=== PATIENT | male | born 1975 | race Caucasian/White ===

== ENCOUNTER → 2016-08-11 | Outpatient (CLI) | payer OTHER ==
[~2016-08-11] MED LIST: DARVOCET-N 1001 EACH PO; FLEXERIL10 MG PO; HYDROCODONE BIT1 T39 PO; IBUPROFEN600 MG PO; LORTAB 5/500 501 TAB PO; MEDROL 4MG. DOSE4 MG PO; NAPROSYN 500MG500 MG PO; NOMEDS *; NORCO 325 MG-51 TAB PO; PHENERGAN25 M3 PO; PRILOSEC OTC20 MG PO; VICODIN 5/500 T1 TAB PO; VICODIN 7.5/501 EACH OR
--- NOTE | 2016-08-11 12:49 | RADIOLOGY REPORT PS360 ---
WRIST-3 VIEWS-LT HISTORY: LT WRIST PAIN COMPARISON: None FINDINGS: No fracture or dislocation. No lytic or blastic change. There is normal mineralization. The joint spaces are well-preserved. No significant degenerative/arthritic changes. No erosive changes evident. IMPRESSION: Negative, no acute finding
== END ==
LOC: RAD 09:26
DX: M25.532 Pain in left wrist (principal)

== ENCOUNTER → 2016-12-21 | Outpatient (CLI) | payer OTHER ==
[2016-12-21 13:01] LABS: AMPHETAMINES/METAMPHETAMINES NEGATIVE ng/mL (<1000)
[2016-12-24 18:39] LABS: Opiates Negative (Cutoff=100)
== END ==
LOC: LAB 11:49
PROVIDERS: Anesthesiology
DX: Z79.899 Other long term (current) drug therapy (principal)